=== PATIENT | female | born 1980 | race African-American/Black ===

== ENCOUNTER 2020-11-11 04:47 | Day surgery (SDC) | payer OTHER ==
[2020-11-09 12:50] VITALS: BMI 22.1
[2020-11-11 10:59] VITALS: TEMP 98.1
[2020-11-11 11:39] VITALS: BP 109/74; PULSE 88
== END 2020-11-11 12:15 | disposition home or self-care (01) ==
LOC: JASU-ENDO 04:47
PROVIDERS: ATTEND Internal Medicine Gastroenterology
PROC: 0DB78ZX Excision of Stomach, Pylorus, Via Natural or Artificial Opening Endoscopic, Diagnostic (ICD-10-PCS; principal; 2020-11-11 10:30)
DX: K29.50 Unspecified chronic gastritis without bleeding (principal)
CPT/HCPCS: 81025; 88305-TC; 88342-TC